=== PATIENT | male | born 1945 | race Caucasian/White ===

== ENCOUNTER 2016-04-03 17:59 | Emergency (ER) | payer MEDICARE, OTHER ==
[~2016-04-03 17:59] MED LIST: ALLEGRA 180MG180 MG PO; CALCIUM 600 W/V1 TAB PO; CIPRO XR500 MG; FELODIPINE10 MG PO; GLUCOTROL XL5 MG PO; LIDODERM 5% PATC1 EA TP; LOPRESSOR100 MG PO; MECLIZINE25 MG PO; MICARDIS HCT; MICARDIS HCT 251 TAB PO; NEXIUM 40MG40 MG PO; OMEGA-31000 MG PO; PLENDIL 5MG TAB5 MG; SIMVASTATIN20 MG PO; TOPROL XL200 MG; TYLENOL 325MG325 MG PO; VIAGRA100 MG PO; ZOCOR
[2016-04-03] MEDS ORDERED: GLUCOTROL10 M2 PO (18:06)
[2016-04-03] MEDS ORDERED: LOPRESSOR 550 MG/TAB PO (18:06)
[2016-04-03] MEDS ORDERED: NORCO 325 MG-51 TA1 PO (18:07)
[2016-04-03] MEDS ORDERED: FELODIPINE10 MG PO (18:07)
[2016-04-03] MEDS ORDERED: CARAFATE 1GM1 G PO (18:08)
[2016-04-03] MEDS ORDERED: LEVOXYL50 MCG PO (18:09)
[2016-04-03] MEDS ORDERED: ELIQUIS2.5 MG PO (18:09)
[2016-04-03] MEDS ORDERED: MULTAQ400 M1 PO (18:10)
[2016-04-03] MEDS ORDERED: NEXIUM 40MG40 MG PO (19:25)
[2016-09-14] MEDS ORDERED: CARAFATE PO (07:33)
[2016-09-14] MEDS ORDERED: CLARITIN LIQUI-10 MG PO (07:35)
== END 2016-04-03 19:49 | disposition home or self-care (01) ==
LOC: ED 17:59
DX: R07.89 Other chest pain (principal); K21.9 Gastro-esophageal reflux disease without esophagitis; Z79.01 Long term (current) use of anticoagulants; Z79.82 Long term (current) use of aspirin

== ENCOUNTER → 2016-07-15 | Outpatient (CLI) | payer MEDICARE, OTHER ==
[2016-04-03 19:49] VITALS: BP 136/81
[~2016-07-15] MED LIST changes: +CARAFATE 1GM1 G PO; +CARAFATE PO; +CLARITIN LIQUI-10 MG PO; +ELIQUIS2.5 MG PO; +GLUCOTROL10 M2 PO; +LEVOXYL50 MCG PO; +LOPRESSOR 550 MG/TAB PO; +MULTAQ400 M1 PO; +NORCO 325 MG-51 TA1 PO
== END ==
LOC: RAD 07:02 → LAB 07:02
DX: K76.0 Fatty (change of) liver, not elsewhere classified (principal); R53.82 Chronic fatigue, unspecified; R74.8 Abnormal levels of other serum enzymes

== ENCOUNTER → 2016-08-25 | Outpatient (CLI) | payer MEDICARE, OTHER ==
[2016-04-03 19:49] VITALS: BP 136/81
== END ==
LOC: LAB 08:10
DX: E11.9 Type 2 diabetes mellitus without complications (principal); E78.2 Mixed hyperlipidemia; M17.12 Unilateral primary osteoarthritis, left knee

== ENCOUNTER → 2016-09-14 | Outpatient (CLI) | payer MEDICARE, OTHER ==
[~2016-09-14] VITALS: Ht 172.7 cm; Wt 109.1 kg
[2016-09-14 07:30] VITALS: BP 150/85
== END ==
LOC: LAB 06:49
DX: M25.562 Pain in left knee (principal); M17.12 Unilateral primary osteoarthritis, left knee; I48.0 Paroxysmal atrial fibrillation; Z01.812 Encounter for preprocedural laboratory examination; Z01.811 Encounter for preprocedural respiratory examination

== ENCOUNTER → 2016-10-16 | Outpatient (CLI) | payer MEDICARE, OTHER ==
[2016-09-14 07:30] VITALS: BP 150/85
== END ==
LOC: LAB 06:51
DX: Z01.818 Encounter for other preprocedural examination (principal); M17.12 Unilateral primary osteoarthritis, left knee; I48.0 Paroxysmal atrial fibrillation; E78.2 Mixed hyperlipidemia; I10 Essential (primary) hypertension; E11.8 Type 2 diabetes mellitus with unspecified complications; K21.9 Gastro-esophageal reflux disease without esophagitis

== ENCOUNTER → 2016-10-21 | Outpatient (CLI) | payer MEDICARE, OTHER ==
[2016-09-14 07:30] VITALS: BP 150/85
== END ==
LOC: LAB 09:20
DX: R82.71 Bacteriuria (principal); Z01.818 Encounter for other preprocedural examination; M17.12 Unilateral primary osteoarthritis, left knee; I10 Essential (primary) hypertension; E11.9 Type 2 diabetes mellitus without complications; I48.0 Paroxysmal atrial fibrillation; E03.4 Atrophy of thyroid (acquired); K21.9 Gastro-esophageal reflux disease without esophagitis; E78.2 Mixed hyperlipidemia; F43.21 Adjustment disorder with depressed mood

== ENCOUNTER 2016-10-31 08:30 | Inpatient (IN) | payer MEDICARE, OTHER ==
[~2016-10-31] VITALS: Ht 172.7 cm; Wt 110.1 kg
[2016-10-31 11:44] VITALS: BP 142/63
[2016-10-31] MEDS ORDERED: ELIQUIS5 MG PO (11:47)
[2016-10-31] MEDS ORDERED: BETAPACE80 M1 PO (11:47)
[2016-10-31] MEDS ORDERED: GLIPIZIDE10 M2 PO ×2 (11:48→11:50)
[2016-10-31] MEDS ORDERED: OXYCODONE HYDROC5 M1 PO (11:51)
[2016-10-31 12:12] VITALS: BP 142/63
[2016-10-31 13:04] VITALS: BP 142/63
[2016-10-31 18:02] VITALS: BP 156/76
[2016-11-01 06:22] VITALS: BP 157/74
[2016-11-01 19:17] VITALS: BP 146/70
[2016-11-02 06:04] VITALS: BP 136/64
[2016-11-02 17:50] VITALS: BP 148/69
[2016-11-03 06:06] VITALS: BP 149/74
[2016-11-03 17:39] VITALS: BP 124/54
[2016-11-04 05:26] VITALS: BP 135/63
[2016-11-04 17:38] VITALS: BP 129/65
[2016-11-05 05:54] VITALS: BP 155/86
[2016-11-05 18:34] VITALS: BP 135/62
[2016-11-06 05:36] VITALS: BP 141/75
[2016-11-06 17:56] VITALS: BP 138/66
[2016-11-07 06:31] VITALS: BP 148/77
[2016-11-07 19:02] VITALS: BP 146/70
[2016-11-08 06:15] VITALS: BP 138/66
[2016-11-08 18:22] VITALS: BP 133/65
[2016-11-09 05:41] VITALS: BP 137/63
[2016-11-09 17:39] VITALS: BP 142/69
[2016-11-10 05:59] VITALS: BP 162/76
[2016-11-10] MEDS ORDERED: ACETAMINOPHEN325 M1 PO (13:28)
[2016-11-10] MEDS ORDERED: TRAMADOL 50 MG TAB PO (13:28)
[2016-11-10] MEDS ORDERED: DOCUSATE SOD100 MG PO (13:28)
[2016-11-10] MEDS ORDERED: GOOD NEIGH1200 MG/15 PO (13:28)
[2016-11-10 18:10] VITALS: BP 140/61
[2016-11-11 06:22] VITALS: BP 149/72
== END 2016-11-11 08:44 | disposition home health service (06) | DRG 561 ==
LOC: MED/SURG 08:30
PROVIDERS: ADMIT Family Medicine
DX: Z47.1 Aftercare following joint replacement surgery (principal); Z96.652 Presence of left artificial knee joint; I10 Essential (primary) hypertension; I48.0 Paroxysmal atrial fibrillation; E11.9 Type 2 diabetes mellitus without complications; E03.9 Hypothyroidism, unspecified; K21.9 Gastro-esophageal reflux disease without esophagitis; Z85.46 Personal history of malignant neoplasm of prostate

== ENCOUNTER → 2017-01-11 | Outpatient (CLI) | payer MEDICARE, OTHER ==
[~2017-01-11] MED LIST changes: +ACETAMINOPHEN325 M1 PO; +BETAPACE80 M1 PO; +DOCUSATE SOD100 MG PO; +ELIQUIS5 MG PO; +GLIPIZIDE10 M2 PO; +GOOD NEIGH1200 MG/15 PO; +OXYCODONE HYDROC5 M1 PO; +TRAMADOL 50 MG TAB PO
[2017-01-11 19:40] VITALS: BP 158/87
--- NOTE | 2017-01-11 20:19 | NUR ---
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
== END ==
LOC: AMSURD 19:31
DX: M25.562 Pain in left knee (principal)

== ENCOUNTER → 2017-01-11 | Outpatient (CLI) | payer MEDICARE, OTHER | LOC: RAD 15:42 | DX: M17.11 Unilateral primary osteoarthritis, right knee (principal); Z96.651 Presence of right artificial knee joint; Z88.5 Allergy status to narcotic agent; Z88.8 Allergy status to other drugs, medicaments and biological substances ==

== ENCOUNTER 2017-01-14 08:15 | Outpatient (RCR) | payer MEDICARE, OTHER | END 2017-01-14 08:45 | disposition home or self-care (01) | LOC: PT 08:15 | DX: Z47.1 Aftercare following joint replacement surgery (principal); Z96.652 Presence of left artificial knee joint | CPT/HCPCS: G8978-GP; G8979-GP ==

== ENCOUNTER → 2017-02-09 | Outpatient (CLI) | payer MEDICARE, OTHER ==
[2017-01-11 19:40] VITALS: BP 158/87
== END ==
LOC: LAB 11:24
DX: R05 Cough (principal); M79.1 Myalgia; R61 Generalized hyperhidrosis; Z88.5 Allergy status to narcotic agent; Z88.8 Allergy status to other drugs, medicaments and biological substances

== ENCOUNTER → 2017-04-30 | Outpatient (CLI) | payer MEDICARE, OTHER ==
[2017-04-19 08:22] VITALS: BP 157/84
[~2017-04-30] MED LIST changes: +GLIPIZIDE ER10 M1 PO; +LIDODERM1 EACH TP; +OMEGA-31000 M1 PO; -OMEGA-31000 MG PO; +RT ALBUTEROL CC18 GM IH
== END ==
LOC: LAB 12:06
DX: E11.9 Type 2 diabetes mellitus without complications (principal); Z96.659 Presence of unspecified artificial knee joint; Z88.5 Allergy status to narcotic agent; Z88.8 Allergy status to other drugs, medicaments and biological substances

== ENCOUNTER → 2017-05-03 | Outpatient (CLI) | payer MEDICARE, OTHER ==
[2017-04-19 08:22] VITALS: BP 157/84
[2017-05-03 17:11] LABS: CALCIUM 9.1 mg/dL (8.4-10.2); POTASSIUM 3.7 mmol/L (3.6-5.0)
== END ==
LOC: LAB 16:26
PROVIDERS: Family Medicine
DX: I10 Essential (primary) hypertension (principal); E78.6 Lipoprotein deficiency; Z88.5 Allergy status to narcotic agent; Z88.8 Allergy status to other drugs, medicaments and biological substances

== ENCOUNTER 2017-05-13 08:51 | Inpatient (IN) | payer MEDICARE, OTHER ==
[~2017-05-13] VITALS: Ht 172.7 cm; Wt 107.8 kg
[2017-05-13 09:45] VITALS: BP 99/52
[2017-05-13 09:46] VITALS: BP 99/52
[2017-05-13 11:08] LABS: HEMATOCRIT 37.8 % (42.0-52.0); HEMOGLOBIN 12.7 g/dL (13.5-18.0); MEAN CELL VOLUME 92 fl (78-100); MEAN CORPUSCULAR HEMOGLOBIN 31 pg (27-31); MEAN CORPUSCULAR HGB CONC 34 g/dL (33-37); MEAN PLATELET VOLUME 10.1 fl (7.4-10.4); PLATELET COUNT 258 K/mm3 (130-400); RED BLOOD COUNT 4.11 M/mm3 (4.20-5.60); RED CELL DISTRIBUTION WIDTH 14.1 % (11.5-14.5); WHITE BLOOD COUNT 15.2 K/mm3 (4.8-10.8)
[2017-05-13 11:26] LABS: ALBUMIN 3.9 g/dL (3.5-5.0); BUN/CREATININE RATIO 19.8 (6.0-26.0); CALCIUM 8.7 mg/dL (8.4-10.2); POTASSIUM 3.4 mmol/L (3.6-5.0); TOTAL BILIRUBIN 1.5 mg/dL (0.2-1.3); TOTAL PROTEIN 7.4 g/dL (6.3-8.2)
[2017-05-13 12:31] LABS: URINE APPEARANCE CLOUDY; URINE BILIRUBIN NEGATIVE (NEGATIVE); URINE BLOOD NEGATIVE (NEGATIVE); URINE COLOR DARK YELLOW; URINE GLUCOSE NEGATIVE (NEGATIVE); URINE KETONE NEGATIVE (NEGATIVE); URINE NITRATE NEGATIVE (NEGATIVE); URINE PROTEIN(semi-quant) 1+ mg/dL (NEGATIVE); URINE UROBILINOGEN NORMAL (NORMAL)
[2017-05-13 12:32] LABS: URINE LEUKOCYTE ESTERASE TRACE (NEGATIVE); URINE MUCUS PRESENT (NOT PRESENT)
[2017-05-13 12:33] LABS: LYMPHOCYTE 19 % (20-51); MONOCYTE 8 % (3-10); NEUTROPHILS 72 % (42-75)
[2017-05-13 18:26] VITALS: BP 123/58
[2017-05-14 06:20] VITALS: BP 147/73
[2017-05-14 18:06] VITALS: BP 125/66
[2017-05-14] MEDS ORDERED: JANUVIA50 MG PO (21:21)
[2017-05-14] MEDS ORDERED: MICARDIS80 MG PO (21:22)
[2017-05-15 06:11] VITALS: BP 159/78
[2017-05-15 07:11] LABS: HEMATOCRIT 34.8 % (42.0-52.0); HEMOGLOBIN 11.6 g/dL (13.5-18.0); MEAN CELL VOLUME 92 fl (78-100); MEAN CORPUSCULAR HEMOGLOBIN 31 pg (27-31); MEAN CORPUSCULAR HGB CONC 33 g/dL (33-37); MEAN PLATELET VOLUME 9.3 fl (7.4-10.4); PLATELET COUNT 236 K/mm3 (130-400); RED BLOOD COUNT 3.79 M/mm3 (4.20-5.60); RED CELL DISTRIBUTION WIDTH 13.8 % (11.5-14.5); WHITE BLOOD COUNT 8.1 K/mm3 (4.8-10.8)
[2017-05-15 08:36] LABS: BAND 6 % (0-10); LYMPHOCYTE 22 % (20-51); MONOCYTE 11 % (3-10); NEUTROPHILS 58 % (42-75)
[2017-05-15 18:13] VITALS: BP 138/64
[2017-05-16 06:00] VITALS: BP 146/61
[2017-05-16 18:20] VITALS: BP 154/94
[2017-05-17 06:13] VITALS: BP 145/71
[2017-05-17 18:18] VITALS: BP 123/62
[2017-05-18 06:06] VITALS: BP 142/75
[2017-05-18 18:10] VITALS: BP 118/60
[2017-05-19 05:59] VITALS: BP 170/71
[2017-05-19 10:20] LABS: BASO # 0.1 (0.02-0.10); EOS # 0.3 (0.04-0.40); HEMOGLOBIN 13.1 g/dL (13.5-18.0); LYMPH# 1.5 (1.50-4.00); MEAN CELL VOLUME 92 fl (78-100); MEAN CORPUSCULAR HEMOGLOBIN 30 pg (27-31); MEAN CORPUSCULAR HGB CONC 33 g/dL (33-37); MEAN PLATELET VOLUME 9.2 fl (7.4-10.4); PLATELET COUNT 327 K/mm3 (130-400); RED BLOOD COUNT 4.33 M/mm3 (4.20-5.60); WHITE BLOOD COUNT 9.9 K/mm3 (4.8-10.8)
[2017-05-19 10:29] LABS: BUN/CREATININE RATIO 24.8 (6.0-26.0); CALCIUM 9.3 mg/dL (8.4-10.2); POTASSIUM 3.2 mmol/L (3.6-5.0)
[2017-05-19 18:00] VITALS: BP 133/71
[2017-05-20 06:12] VITALS: BP 136/69
[2017-05-20 18:00] VITALS: BP 132/65
[2017-05-21 06:17] VITALS: BP 155/89
[2017-05-21 18:18] VITALS: BP 151/62
[2017-05-22 06:22] VITALS: BP 147/76
[2017-05-22 18:00] VITALS: BP 145/73
[2017-05-23 06:05] VITALS: BP 157/79
[2017-05-23 17:55] VITALS: BP 132/73
[2017-05-24 06:20] VITALS: BP 169/85
[2017-05-24 09:15] LABS: BUN/CREATININE RATIO 26.2 (6.0-26.0); CALCIUM 9.6 mg/dL (8.4-10.2); POTASSIUM 3.9 mmol/L (3.6-5.0); TOTAL BILIRUBIN 1.7 mg/dL (0.2-1.3); TOTAL PROTEIN 7.7 g/dL (6.3-8.2)
[2017-05-24 18:05] VITALS: BP 112/59
[2017-05-25 06:40] VITALS: BP 131/65
[2017-05-25 18:22] VITALS: BP 120/70
[2017-05-26 06:30] VITALS: BP 138/77
[2017-05-26] MEDS ORDERED: DOCUSATE SOD100 MG PO (17:23)
[2017-05-26] MEDS ORDERED: NEURONTIN300 M1 PO (17:23)
[2017-05-26] MEDS ORDERED: HCTZ 25MG25 MG PO (17:24)
[2017-05-26] MEDS ORDERED: NORCO 325 MG-7.1 TAB PO (17:25)
[2017-05-26 17:45] VITALS: BP 137/67
== END 2017-05-26 18:34 | disposition home or self-care (01) | DRG 561 ==
LOC: MED/SURG 08:51
PROVIDERS: Family Medicine; ADMIT Physician Assistant
DX: Z47.1 Aftercare following joint replacement surgery (principal); Z96.651 Presence of right artificial knee joint; I10 Essential (primary) hypertension; E11.9 Type 2 diabetes mellitus without complications; I48.0 Paroxysmal atrial fibrillation; Z85.46 Personal history of malignant neoplasm of prostate; M54.2 Cervicalgia

== ENCOUNTER → 2017-06-02 | Outpatient (CLI) | payer MEDICARE, OTHER ==
[2017-05-26 17:45] VITALS: BP 137/67
[~2017-06-02] MED LIST changes: +HCTZ 25MG25 MG PO; +JANUVIA50 MG PO; +MICARDIS80 MG PO; +NEURONTIN300 M1 PO; +NORCO 325 MG-7.1 TAB PO
[2017-06-02 11:57] LABS: BUN/CREATININE RATIO 22.8 (6.0-26.0); CALCIUM 9.4 mg/dL (8.4-10.2); POTASSIUM 3.7 mmol/L (3.6-5.0)
== END ==
LOC: LAB 10:44
PROVIDERS: Family Medicine
DX: I10 Essential (primary) hypertension (principal); Z88.5 Allergy status to narcotic agent; Z88.8 Allergy status to other drugs, medicaments and biological substances

== ENCOUNTER → 2017-06-07 | Outpatient (CLI) | payer MEDICARE, OTHER ==
[2017-05-26 17:45] VITALS: BP 137/67
== END ==
LOC: RAD 05-31 09:00
DX: M50.31 Other cervical disc degeneration, high cervical region (principal); M48.02 Spinal stenosis, cervical region; M25.78 Osteophyte, vertebrae; Z96.651 Presence of right artificial knee joint; Z88.5 Allergy status to narcotic agent; Z88.8 Allergy status to other drugs, medicaments and biological substances

== ENCOUNTER 2017-07-08 11:00 | Outpatient (RCR) | payer MEDICARE, OTHER | END 2017-07-08 12:00 | disposition home or self-care (01) | LOC: PT 11:00 | DX: Z47.1 Aftercare following joint replacement surgery (principal); Z96.651 Presence of right artificial knee joint | CPT/HCPCS: G8978-GP; G8979-GP ==

== ENCOUNTER → 2017-07-13 | Outpatient (CLI) | payer MEDICARE, OTHER ==
[2017-07-13 12:45] LABS: BASO # 0.1 (0.02-0.10); EOS # 0.2 (0.04-0.40); EOS % 2.9 % (0.0-4.0); HEMATOCRIT 47.3 % (42.0-52.0); HEMOGLOBIN 15.9 g/dL (13.5-18.0); LYMPH# 1.8 (1.50-4.00); MEAN CELL VOLUME 89 fl (78-100); MEAN CORPUSCULAR HEMOGLOBIN 30 pg (27-31); MEAN CORPUSCULAR HGB CONC 34 g/dL (33-37); MEAN PLATELET VOLUME 10.1 fl (7.4-10.4); MONO # 0.8 (0.20-0.80); NEU # 5.1 (1.40-6.50); PLATELET COUNT 185 K/mm3 (130-400); RED BLOOD COUNT 5.32 M/mm3 (4.20-5.60); RED CELL DISTRIBUTION WIDTH 13.8 % (11.5-14.5); WHITE BLOOD COUNT 7.9 K/mm3 (4.8-10.8)
[2017-07-13 12:50] LABS: PROTHROMBIN TIME 11.4 SECONDS (9.0-12.0)
[2017-07-13 12:52] LABS: ALBUMIN 4.3 g/dL (3.5-5.0); BUN/CREATININE RATIO 21.2 (6.0-26.0); CALCIUM 9.2 mg/dL (8.4-10.2); POTASSIUM 3.7 mmol/L (3.6-5.0); TOTAL BILIRUBIN 0.8 mg/dL (0.2-1.3); TOTAL PROTEIN 7.7 g/dL (6.3-8.2)
== END ==
LOC: LAB 12:21
PROVIDERS: Physician Assistant
DX: K75.81 Nonalcoholic steatohepatitis (NASH) (principal); R74.8 Abnormal levels of other serum enzymes; R14.0 Abdominal distension (gaseous)

== ENCOUNTER → 2017-07-21 | Outpatient (CLI) | payer MEDICARE, OTHER | LOC: RAD 08:25 | DX: K76.0 Fatty (change of) liver, not elsewhere classified (principal) ==

== ENCOUNTER → 2017-07-30 | Outpatient (CLI) | payer MEDICARE, OTHER | LOC: LAB 14:15 | DX: E11.9 Type 2 diabetes mellitus without complications (principal) ==

== ENCOUNTER 2017-09-08 08:30 | Outpatient (RCR) | payer MEDICARE, OTHER ==
[2017-10-22] MEDS ORDERED: KLONOPIN 0.5MG0.5 MG PO (11:52)
[2017-10-22] MEDS ORDERED: CIPRO500 M1 PO (11:53)
[2017-10-22] MEDS ORDERED: COLACE100 M1 PO (11:54)
[2017-10-22] MEDS ORDERED: FLOMAX0.4 MG PO (11:54)
== END 2017-10-25 | disposition home or self-care (01) ==
LOC: PT
DX: M54.12 Radiculopathy, cervical region (principal); M48.02 Spinal stenosis, cervical region

== ENCOUNTER → 2017-09-23 | Outpatient (CLI) | payer MEDICARE, OTHER | LOC: RAD 07:26 | DX: R31.1 Benign essential microscopic hematuria (principal) ==

== ENCOUNTER → 2017-10-14 | Outpatient (CLI) | payer MEDICARE, OTHER ==
[2017-10-14 07:14] LABS: CALCIUM 9.5 mg/dL (8.4-10.2); POTASSIUM 3.9 mmol/L (3.6-5.0)
== END ==
LOC: LAB 06:48
PROVIDERS: Family Medicine
DX: E11.9 Type 2 diabetes mellitus without complications (principal); M48.02 Spinal stenosis, cervical region; G45.0 Vertebro-basilar artery syndrome

== ENCOUNTER → 2017-10-22 | Outpatient (CLI) | payer MEDICARE, OTHER ==
[~2017-10-22] VITALS: Ht 170.2 cm; Wt 107.7 kg
[~2017-10-22] MED LIST changes: +CIPRO500 M1 PO; +COLACE100 M1 PO; +FLOMAX0.4 MG PO; +KLONOPIN 0.5MG0.5 MG PO
[2017-10-22 11:36] LABS: HEMATOCRIT 49.5 % (42.0-52.0); HEMOGLOBIN 16.8 g/dL (13.5-18.0); MEAN CELL VOLUME 90 fl (78-100); MEAN CORPUSCULAR HEMOGLOBIN 30 pg (27-31); MEAN CORPUSCULAR HGB CONC 34 g/dL (33-37); MEAN PLATELET VOLUME 10.3 fl (7.4-10.4); PLATELET COUNT 196 K/mm3 (130-400); RED BLOOD COUNT 5.53 M/mm3 (4.20-5.60); RED CELL DISTRIBUTION WIDTH 13.8 % (11.5-14.5); WHITE BLOOD COUNT 14.4 K/mm3 (4.8-10.8)
[2017-10-22 11:54] LABS: ALBUMIN 4.5 g/dL (3.5-5.0); CALCIUM 9.8 mg/dL (8.4-10.2); DIRECT BILIRUBIN 0.5 mg/dL (0.0-0.4); POTASSIUM 4.1 mmol/L (3.6-5.0); TOTAL BILIRUBIN 1.8 mg/dL (0.2-1.3); TOTAL PROTEIN 7.6 g/dL (6.3-8.2)
[2017-10-22 11:57] VITALS: BP 122/64
[2017-10-22 11:57] LABS: PARTIAL THROMBOPLASTIN TIME 27.9 SECONDS (21.0-32.0); PROTHROMBIN TIME 11.3 SECONDS (9.0-12.0)
[2017-10-22 12:38] LABS: LYMPHOCYTE 10 % (20-51); MONOCYTE 9 % (3-10); NEUTROPHILS 79 % (42-75)
[2017-10-22 12:48] LABS: URINE APPEARANCE CLEAR; URINE BILIRUBIN NEGATIVE (NEGATIVE); URINE COLOR YELLOW; URINE KETONE NEGATIVE (NEGATIVE); URINE PROTEIN(semi-quant) TRACE mg/dL (NEGATIVE); URINE UROBILINOGEN NORMAL (NORMAL)
[2017-10-22 12:49] LABS: URINE BLOOD NEGATIVE (NEGATIVE); URINE LEUKOCYTE ESTERASE NEGATIVE (NEGATIVE); URINE NITRATE NEGATIVE (NEGATIVE)
== END ==
LOC: AMSURD 10:55
PROVIDERS: Family Medicine
DX: Z01.818 Encounter for other preprocedural examination (principal); M50.03 Cervical disc disorder with myelopathy, cervicothoracic region; I48.0 Paroxysmal atrial fibrillation; E11.9 Type 2 diabetes mellitus without complications; E78.5 Hyperlipidemia, unspecified; I10 Essential (primary) hypertension; G45.0 Vertebro-basilar artery syndrome

== ENCOUNTER → 2017-11-01 | Outpatient (CLI) | payer MEDICARE, OTHER ==
[2017-10-22 11:57] VITALS: BP 122/64
[2017-11-01 09:42] LABS: BASO # 0.1 (0.02-0.10); EOS # 0.3 (0.04-0.40); EOS % 3.4 % (0.0-4.0); HEMATOCRIT 47.6 % (42.0-52.0); HEMOGLOBIN 16.5 g/dL (13.5-18.0); LYMPH# 1.7 (1.50-4.00); MEAN CELL VOLUME 89 fl (78-100); MEAN CORPUSCULAR HEMOGLOBIN 31 pg (27-31); MEAN CORPUSCULAR HGB CONC 35 g/dL (33-37); MEAN PLATELET VOLUME 10.4 fl (7.4-10.4); NEU # 5.5 (1.40-6.50); PLATELET COUNT 179 K/mm3 (130-400); RED BLOOD COUNT 5.36 M/mm3 (4.20-5.60); RED CELL DISTRIBUTION WIDTH 13.5 % (11.5-14.5); WHITE BLOOD COUNT 8.5 K/mm3 (4.8-10.8)
== END ==
LOC: LAB 09:11
PROVIDERS: Family Medicine
DX: D72.829 Elevated white blood cell count, unspecified (principal)

== ENCOUNTER 2017-11-17 01:41 | Emergency (ER) | payer MEDICARE, OTHER ==
[2017-11-17 07:30] VITALS: BP 156/91
== END 2017-11-17 07:50 | disposition home or self-care (01) ==
LOC: ED 01:41
DX: F41.9 Anxiety disorder, unspecified (principal); R06.02 Shortness of breath; Z98.1 Arthrodesis status; E11.9 Type 2 diabetes mellitus without complications; I48.91 Unspecified atrial fibrillation; Z79.01 Long term (current) use of anticoagulants; I25.10 Atherosclerotic heart disease of native coronary artery without angina pectoris; I11.0 Hypertensive heart disease with heart failure; I50.9 Heart failure, unspecified; E78.5 Hyperlipidemia, unspecified; K21.9 Gastro-esophageal reflux disease without esophagitis; Z79.899 Other long term (current) drug therapy; Z79.84 Long term (current) use of oral hypoglycemic drugs

== ENCOUNTER 2017-12-01 06:38 | Emergency (ER) | payer MEDICARE, OTHER ==
[~2017-12-01] VITALS: Ht 172.7 cm; Wt 104.5 kg
[2017-12-01] MEDS ORDERED: OXYCODONE PO (06:48)
[2017-12-01 08:38] VITALS: BP 150/77
== END 2017-12-01 08:42 | disposition home or self-care (01) ==
LOC: ED 06:38
DX: S16.1XXA Strain of muscle, fascia and tendon at neck level, initial encounter (principal); W10.1XXA Fall (on)(from) sidewalk curb, initial encounter; I10 Essential (primary) hypertension; Z98.1 Arthrodesis status; Z79.899 Other long term (current) drug therapy; Z79.01 Long term (current) use of anticoagulants

== ENCOUNTER → 2018-01-11 | Outpatient (CLI) | payer MEDICARE, OTHER ==
[~2018-01-11] MED LIST changes: +OXYCODONE PO
[2018-01-11 11:49] LABS: PROTHROMBIN TIME 11.8 SECONDS (9.0-12.0)
[2018-01-11 11:50] LABS: ALBUMIN 4.7 g/dL (3.5-5.0); CALCIUM 9.5 mg/dL (8.4-10.2); TOTAL BILIRUBIN 1.2 mg/dL (0.2-1.3); TOTAL PROTEIN 7.7 g/dL (6.3-8.2)
[2018-01-11 13:17] LABS: HEMATOCRIT 47.9 % (42.0-52.0); HEMOGLOBIN 16.1 g/dL (13.5-18.0); MEAN CELL VOLUME 90 fl (78-100); MEAN CORPUSCULAR HEMOGLOBIN 30 pg (27-31); MEAN CORPUSCULAR HGB CONC 34 g/dL (33-37); MEAN PLATELET VOLUME 11.3 fl (7.4-10.4); PLATELET COUNT 179 K/mm3 (130-400); RED BLOOD COUNT 5.35 M/mm3 (4.20-5.60); RED CELL DISTRIBUTION WIDTH 13.9 % (11.5-14.5)
[2018-01-11 14:33] LABS: LYMPHOCYTE 14 % (20-51); MONOCYTE 11 % (3-10); NEUTROPHILS 74 % (42-75)
== END ==
LOC: LAB 11:05
PROVIDERS: Physician Assistant
DX: K75.81 Nonalcoholic steatohepatitis (NASH) (principal); R74.8 Abnormal levels of other serum enzymes

== ENCOUNTER → 2018-01-12 | Outpatient (CLI) | payer MEDICARE, OTHER | LOC: RAD 07:14 | DX: K76.0 Fatty (change of) liver, not elsewhere classified (principal) ==

== ENCOUNTER → 2018-04-23 | Outpatient (CLI) | payer MEDICARE, OTHER ==
[2018-04-23 07:57] LABS: ALBUMIN 4.3 g/dL (3.5-5.0); CALCIUM 9.2 mg/dL (8.4-10.2); POTASSIUM 3.7 mmol/L (3.6-5.0); TOTAL BILIRUBIN 1.3 mg/dL (0.2-1.3); TOTAL PROTEIN 7.6 g/dL (6.3-8.2)
== END ==
LOC: LAB 07:23
PROVIDERS: Family Medicine
DX: E11.9 Type 2 diabetes mellitus without complications (principal); I10 Essential (primary) hypertension; E78.5 Hyperlipidemia, unspecified

== ENCOUNTER → 2018-07-11 | Outpatient (CLI) | payer MEDICARE, OTHER ==
[2018-07-11 12:31] LABS: BASO # 0.1 (0.02-0.10); EOS # 0.1 (0.04-0.40); EOS % 1.7 % (0.0-4.0); HEMATOCRIT 48.9 % (42.0-52.0); LYMPH# 1.5 (1.50-4.00); MEAN CELL VOLUME 91 fl (78-100); MEAN CORPUSCULAR HEMOGLOBIN 30 pg (27-31); MEAN CORPUSCULAR HGB CONC 33 g/dL (33-37); MEAN PLATELET VOLUME 10.1 fl (7.4-10.4); MONO # 0.7 (0.20-0.80); NEU # 4.7 (1.40-6.50); PLATELET COUNT 163 K/mm3 (130-400); RED CELL DISTRIBUTION WIDTH 14.1 % (11.5-14.5); WHITE BLOOD COUNT 7.2 K/mm3 (4.8-10.8)
[2018-07-11 12:48] LABS: CALCIUM 9.6 mg/dL (8.3-10.5); TOTAL BILIRUBIN 0.9 mg/dL (0.2-1.2)
[2018-07-11 13:02] LABS: PROTHROMBIN TIME 11.5 SECONDS (9.0-12.0)
== END ==
LOC: LAB 12:15
PROVIDERS: Physician Assistant
DX: K75.81 Nonalcoholic steatohepatitis (NASH) (principal); R10.9 Unspecified abdominal pain; R74.8 Abnormal levels of other serum enzymes

== ENCOUNTER → 2018-07-14 | Outpatient (CLI) | payer MEDICARE, OTHER | LOC: RAD 07:00 | DX: K75.81 Nonalcoholic steatohepatitis (NASH) (principal); R94.5 Abnormal results of liver function studies; Z90.49 Acquired absence of other specified parts of digestive tract ==

== ENCOUNTER → 2018-07-18 | Outpatient (CLI) | payer MEDICARE, OTHER | LOC: LAB 10:07 | DX: E11.9 Type 2 diabetes mellitus without complications (principal); M79.604 Pain in right leg; R06.83 Snoring ==

== ENCOUNTER 2018-08-25 18:25 | Emergency (ER) | payer MEDICARE, OTHER ==
[~2018-08-25] VITALS: Ht 172.7 cm; Wt 109.3 kg
[2018-08-25] MEDS ORDERED: VIAGRA 25MG TAB25 MG PO (18:55)
[2018-08-25] MEDS ORDERED: ALLEGRA ALLERG180 MG PO (18:56)
[2018-08-25] MEDS ORDERED: MICARDIS HCT 251 TAB PO (18:56)
[2018-08-25] MEDS ORDERED: TIKOSYN0.5 MG PO (18:57)
[2018-08-25] MEDS ORDERED: VITAMIN E100 UNI2 PO (18:58)
[2018-08-25] MEDS ORDERED: ELIQUIS5 MG PO (18:58)
[2018-08-25] MEDS ORDERED: EFFER-K10 MEQ PO (18:59)
[2018-08-25] MEDS ORDERED: LIDODERM1 EACH TP (19:00)
[2018-08-25 19:08] LABS: EOS # 0.2 (0.04-0.40); EOS % 2.2 % (0.0-4.0); HEMATOCRIT 46.7 % (42.0-52.0); HEMOGLOBIN 15.9 g/dL (13.5-18.0); MEAN CELL VOLUME 90 fl (78-100); MEAN CORPUSCULAR HEMOGLOBIN 31 pg (27-31); MEAN CORPUSCULAR HGB CONC 34 g/dL (33-37); MEAN PLATELET VOLUME 10.2 fl (7.4-10.4); NEU # 5.1 (1.40-6.50); PLATELET COUNT 159 K/mm3 (130-400); RED CELL DISTRIBUTION WIDTH 13.9 % (11.5-14.5); WHITE BLOOD COUNT 8.3 K/mm3 (4.8-10.8)
[2018-08-25 19:15] LABS: POTASSIUM 3.8 mmol/L (3.5-5.1); SODIUM 140 mmol/L (136-145)
[2018-08-25 19:16] LABS: CALCIUM 9.4 mg/dL (8.3-10.5)
[2018-08-25 19:17] LABS: GLUCOSE 191 mg/dL (75-110)
[2018-08-25 19:18] LABS: TOTAL PROTEIN 7.1 g/dL (6.2-8.1)
[2018-08-25 19:19] LABS: CARBON DIOXIDE 24 mmol/L (23-31); TOTAL BILIRUBIN 0.8 mg/dL (0.2-1.2)
[2018-08-25 19:23] LABS: AST-SGOT 39 U/L (5-34)
[2018-08-25 19:24] LABS: ALT/SGPT 50 U/L (0-55)
[2018-08-25 19:31] LABS: TROPONIN-I < 0.03 ng/mL (<0.030)
[2018-08-25 22:30] VITALS: BP 150/86
== END 2018-08-25 22:30 | disposition home or self-care (01) ==
LOC: ED 18:25
PROVIDERS: Nurse Practitioner Family
DX: R07.89 Other chest pain (principal); M54.12 Radiculopathy, cervical region; G89.29 Other chronic pain; M54.2 Cervicalgia; I25.10 Atherosclerotic heart disease of native coronary artery without angina pectoris; I48.91 Unspecified atrial fibrillation; E11.9 Type 2 diabetes mellitus without complications; K21.9 Gastro-esophageal reflux disease without esophagitis; Z90.49 Acquired absence of other specified parts of digestive tract; Z79.84 Long term (current) use of oral hypoglycemic drugs; Z90.89 Acquired absence of other organs; Z98.1 Arthrodesis status; Z96.653 Presence of artificial knee joint, bilateral; Z79.01 Long term (current) use of anticoagulants; W19.XXXA Unspecified fall, initial encounter
CPT/HCPCS: J2405; J7030

== ENCOUNTER → 2018-10-28 | Outpatient (CLI) | payer MEDICARE, OTHER ==
[~2018-10-28] VITALS: Ht 172.7 cm; Wt 107.3 kg
[~2018-10-28] MED LIST changes: +ALLEGRA ALLERG180 MG PO; +EFFER-K10 MEQ PO; +TIKOSYN0.5 MG PO; +VIAGRA 25MG TAB25 MG PO; +VITAMIN E100 UNI2 PO
[2018-10-28 12:59] LABS: POTASSIUM 4.2 mmol/L (3.5-5.1); SODIUM 139 mmol/L (136-145)
[2018-10-28 13:00] LABS: CALCIUM 9.5 mg/dL (8.3-10.5)
[2018-10-28 13:01] LABS: GLUCOSE 238 mg/dL (75-110)
[2018-10-28 13:02] LABS: CARBON DIOXIDE 24 mmol/L (23-31)
[2018-10-28 13:06] VITALS: BP 114/68
[2018-10-28 13:13] LABS: CKMB ISOENZYME 2.7 ng/mL (0.0-3.5)
[2018-10-28 13:15] LABS: TROPONIN-I < 0.03 ng/mL (<0.030)
== END ==
LOC: AMSURD 12:35
PROVIDERS: Family Medicine
DX: E11.9 Type 2 diabetes mellitus without complications (principal); R11.0 Nausea; R10.13 Epigastric pain; M54.9 Dorsalgia, unspecified; M54.2 Cervicalgia; R06.83 Snoring; R07.9 Chest pain, unspecified; M79.604 Pain in right leg

== ENCOUNTER → 2018-11-07 | Outpatient (CLI) | payer MEDICARE, OTHER ==
[2018-10-28 13:06] VITALS: BP 114/68
[2018-11-07 07:23] LABS: POTASSIUM 3.9 mmol/L (3.5-5.1)
[2018-11-07 07:25] LABS: CALCIUM 9.2 mg/dL (8.3-10.5)
== END ==
LOC: LAB 06:56
PROVIDERS: Family Medicine
DX: M79.604 Pain in right leg (principal); E11.9 Type 2 diabetes mellitus without complications; I10 Essential (primary) hypertension; R06.83 Snoring

== ENCOUNTER → 2019-01-10 | Outpatient (CLI) | payer MEDICARE, OTHER ==
[2018-10-28 13:06] VITALS: BP 114/68
[2019-01-10 07:59] LABS: CALCIUM 9.7 mg/dL (8.3-10.5)
[2019-01-10 08:00] LABS: TOTAL PROTEIN 7.5 g/dL (6.2-8.1)
[2019-01-10 08:02] LABS: TOTAL BILIRUBIN 1.3 mg/dL (0.2-1.2)
[2019-01-10 08:19] LABS: PROTHROMBIN TIME 11.5 SECONDS (9.0-12.0)
[2019-01-10 09:52] LABS: HEMATOCRIT 49.3 % (42.0-52.0); HEMOGLOBIN 16.7 g/dL (13.5-18.0); MEAN CELL VOLUME 90 fl (78-100); MEAN CORPUSCULAR HEMOGLOBIN 31 pg (27-31); MEAN CORPUSCULAR HGB CONC 34 g/dL (33-37); MEAN PLATELET VOLUME 10.2 fl (7.4-10.4); PLATELET COUNT 170 K/mm3 (130-400); RED BLOOD COUNT 5.46 M/mm3 (4.20-5.60); RED CELL DISTRIBUTION WIDTH 14.3 % (11.5-14.5); WHITE BLOOD COUNT 7.3 K/mm3 (4.8-10.8)
[2019-01-10 09:53] LABS: LYMPHOCYTE 33 % (20-51); MONOCYTE 6 % (3-10); NEUTROPHILS 56 % (42-75)
[2019-01-11 06:27] LABS: ALBUMIN 4.3 g/dL (3.4-4.8); POTASSIUM 3.5 mmol/L (3.5-5.1)
== END ==
LOC: LAB 07:02
PROVIDERS: Physician Assistant
DX: K75.81 Nonalcoholic steatohepatitis (NASH) (principal)

== ENCOUNTER → 2019-01-12 | Outpatient (CLI) | payer MEDICARE, OTHER ==
[2018-10-28 13:06] VITALS: BP 114/68
== END ==
LOC: RAD 07:16
DX: K75.81 Nonalcoholic steatohepatitis (NASH) (principal); Z90.49 Acquired absence of other specified parts of digestive tract

== ENCOUNTER 2019-02-10 00:40 | Emergency (ER) | payer MEDICARE, OTHER ==
[2019-02-10 01:48] LABS: EOS # 0.3 (0.04-0.40); EOS % 4.2 % (0.0-4.0); HEMATOCRIT 49.3 % (42.0-52.0); HEMOGLOBIN 16.4 g/dL (13.5-18.0); LYMPH# 1.9 (1.50-4.00); MEAN CELL VOLUME 92 fl (78-100); MEAN CORPUSCULAR HEMOGLOBIN 30 pg (27-31); MEAN CORPUSCULAR HGB CONC 33 g/dL (33-37); MEAN PLATELET VOLUME 10.1 fl (7.4-10.4); MONO # 0.8 (0.20-0.80); NEU # 4.3 (1.40-6.50); PLATELET COUNT 145 K/mm3 (130-400); RED BLOOD COUNT 5.39 M/mm3 (4.20-5.60); RED CELL DISTRIBUTION WIDTH 14.3 % (11.5-14.5); WHITE BLOOD COUNT 7.4 K/mm3 (4.8-10.8)
[2019-02-10 01:58] LABS: POTASSIUM 3.6 mmol/L (3.5-5.1); SODIUM 141 mmol/L (136-145)
[2019-02-10 02:00] LABS: GLUCOSE 203 mg/dL (75-110)
[2019-02-10 02:01] LABS: CARBON DIOXIDE 24 mmol/L (23-31)
[2019-02-10 02:03] LABS: D-DIMER 0.37 mg/L FEU (0.15-0.50)
[2019-02-10 02:05] LABS: AST-SGOT 29 U/L (5-34)
[2019-02-10 02:06] LABS: ALT/SGPT 36 U/L (0-55)
[2019-02-10 02:23] LABS: TROPONIN-I < 0.03 ng/mL (<0.030)
[2019-02-10 06:06] VITALS: BP 138/73
== END 2019-02-10 06:06 | disposition home or self-care (01) ==
LOC: ED 00:40
PROVIDERS: Nurse Practitioner Family
DX: R06.02 Shortness of breath (principal); I11.0 Hypertensive heart disease with heart failure; I50.9 Heart failure, unspecified; I48.91 Unspecified atrial fibrillation; E11.9 Type 2 diabetes mellitus without complications; K21.9 Gastro-esophageal reflux disease without esophagitis; G47.33 Obstructive sleep apnea (adult) (pediatric); M54.2 Cervicalgia; M54.9 Dorsalgia, unspecified; G89.29 Other chronic pain; Z79.84 Long term (current) use of oral hypoglycemic drugs; Z85.46 Personal history of malignant neoplasm of prostate; Z96.653 Presence of artificial knee joint, bilateral
CPT/HCPCS: J7030

== ENCOUNTER → 2019-02-20 | Outpatient (CLI) | payer MEDICARE, OTHER ==
[2019-02-10 06:06] VITALS: BP 138/73
== END ==
LOC: RAD 09:47
DX: M19.012 Primary osteoarthritis, left shoulder (principal); G47.33 Obstructive sleep apnea (adult) (pediatric); R06.02 Shortness of breath

== ENCOUNTER → 2019-03-01 | Outpatient (CLI) | payer MEDICARE, OTHER ==
[2019-02-10 06:06] VITALS: BP 138/73
== END ==
LOC: LAB 08:50
DX: R97.20 Elevated prostate specific antigen [PSA] (principal)

== ENCOUNTER 2019-04-07 08:00 | Outpatient (RCR) | payer MEDICARE, OTHER | END 2019-04-07 08:30 | disposition still patient (30) | LOC: PT 08:00 | DX: M19.012 Primary osteoarthritis, left shoulder (principal) ==

== ENCOUNTER → 2019-07-11 | Outpatient (CLI) | payer MEDICARE, OTHER ==
[2019-07-11 07:30] LABS: POTASSIUM 3.7 mmol/L (3.5-5.1)
[2019-07-11 07:31] LABS: ALBUMIN 4.1 g/dL (3.4-4.8)
[2019-07-11 07:32] LABS: CALCIUM 8.8 mg/dL (8.3-10.5)
[2019-07-11 07:35] LABS: TOTAL BILIRUBIN 0.8 mg/dL (0.2-1.2)
== END ==
LOC: LAB 06:59
PROVIDERS: Family Medicine
DX: E11.9 Type 2 diabetes mellitus without complications (principal)

== ENCOUNTER → 2019-07-17 | Outpatient (CLI) | payer MEDICARE, OTHER | LOC: RAD 07:52 → LAB 07:52 → RAD 08:00 | DX: K76.0 Fatty (change of) liver, not elsewhere classified (principal); Z90.49 Acquired absence of other specified parts of digestive tract ==

== ENCOUNTER → 2019-08-01 | Outpatient (CLI) | payer MEDICARE, OTHER | LOC: RAD 07:15 | DX: N20.0 Calculus of kidney (principal) | CPT/HCPCS: Q9967 ==

== ENCOUNTER → 2019-09-04 | Outpatient (CLI) | payer MEDICARE, OTHER ==
[2019-09-04 08:13] LABS: ALBUMIN 4.1 g/dL (3.4-4.8)
[2019-09-04 08:16] LABS: TOTAL PROTEIN 7.5 g/dL (6.2-8.1)
[2019-09-04 08:18] LABS: TOTAL BILIRUBIN 0.9 mg/dL (0.2-1.2)
[2019-09-04 08:21] LABS: DIRECT BILIRUBIN 0.3 mg/dL (0.0-0.5)
== END ==
LOC: LAB 07:53
PROVIDERS: Family Medicine
DX: E11.9 Type 2 diabetes mellitus without complications (principal); K76.0 Fatty (change of) liver, not elsewhere classified; E78.5 Hyperlipidemia, unspecified

== ENCOUNTER → 2019-11-06 | Outpatient (CLI) | payer MEDICARE, OTHER | LOC: LAB 14:19 | DX: E11.22 Type 2 diabetes mellitus with diabetic chronic kidney disease (principal); I12.9 Hypertensive chronic kidney disease with stage 1 through stage 4 chronic kidney disease, or unspecified chronic kidney disease; N18.3 Chronic kidney disease, stage 3 (moderate); K64.4 Residual hemorrhoidal skin tags; E78.2 Mixed hyperlipidemia ==

== ENCOUNTER → 2019-11-07 | Outpatient (CLI) | payer MEDICARE, OTHER ==
[2019-11-07 07:33] LABS: ALBUMIN 4.3 g/dL (3.4-4.8)
[2019-11-07 07:36] LABS: TOTAL PROTEIN 7.2 g/dL (6.2-8.1)
[2019-11-07 07:38] LABS: TOTAL BILIRUBIN 1.2 mg/dL (0.2-1.2)
[2019-11-07 07:41] LABS: DIRECT BILIRUBIN 0.4 mg/dL (0.0-0.5)
== END ==
LOC: LAB 07:07
PROVIDERS: Family Medicine
DX: I12.9 Hypertensive chronic kidney disease with stage 1 through stage 4 chronic kidney disease, or unspecified chronic kidney disease (principal); K64.4 Residual hemorrhoidal skin tags; E78.5 Hyperlipidemia, unspecified; E11.22 Type 2 diabetes mellitus with diabetic chronic kidney disease; N18.3 Chronic kidney disease, stage 3 (moderate); K76.0 Fatty (change of) liver, not elsewhere classified

== ENCOUNTER → 2019-12-14 | Day surgery (SDC) | payer MEDICARE, OTHER | LOC: MSO 07:24 | DX: D12.5 Benign neoplasm of sigmoid colon (principal); K57.30 Diverticulosis of large intestine without perforation or abscess without bleeding; K21.00 Gastro-esophageal reflux disease with esophagitis, without bleeding; Z86.010 Personal history of colon polyps; Z79.84 Long term (current) use of oral hypoglycemic drugs; Z79.899 Other long term (current) drug therapy; K76.0 Fatty (change of) liver, not elsewhere classified; I10 Essential (primary) hypertension; F32.9 Major depressive disorder, single episode, unspecified; I48.91 Unspecified atrial fibrillation; M19.90 Unspecified osteoarthritis, unspecified site; Z79.01 Long term (current) use of anticoagulants | CPT/HCPCS: 00813; J2704; J7030 ==

== ENCOUNTER → 2020-01-17 | Outpatient (CLI) | payer MEDICARE, OTHER ==
[2020-01-17 09:41] LABS: EOS # 0.2 (0.04-0.40); EOS % 1.6 % (0.0-4.0); HEMATOCRIT 51.5 % (42.0-52.0); HEMOGLOBIN 17.2 g/dL (13.5-18.0); MEAN CELL VOLUME 90 fl (78-100); MEAN CORPUSCULAR HEMOGLOBIN 30 pg (27-31); MEAN CORPUSCULAR HGB CONC 33 g/dL (33-37); MEAN PLATELET VOLUME 10.1 fl (7.4-10.4); PLATELET COUNT 174 K/mm3 (130-400); RED CELL DISTRIBUTION WIDTH 14.4 % (11.5-14.5); WHITE BLOOD COUNT 9.2 K/mm3 (4.8-10.8)
[2020-01-17 09:45] LABS: ALBUMIN 4.2 g/dL (3.4-4.8)
[2020-01-17 09:46] LABS: POTASSIUM 4.1 mmol/L (3.5-5.1)
[2020-01-17 09:47] LABS: CALCIUM 9.6 mg/dL (8.3-10.5)
[2020-01-17 09:48] LABS: TOTAL PROTEIN 7.5 g/dL (6.2-8.1)
[2020-01-17 09:50] LABS: TOTAL BILIRUBIN 1.4 mg/dL (0.2-1.2)
[2020-01-17 10:59] LABS: PROTHROMBIN TIME 12.1 SECONDS (9.0-12.0)
== END ==
LOC: LAB 09:06
PROVIDERS: Physician Assistant
DX: K75.81 Nonalcoholic steatohepatitis (NASH) (principal)

== ENCOUNTER → 2020-01-18 | Outpatient (CLI) | payer MEDICARE, OTHER | LOC: RAD 07:05 | DX: K76.0 Fatty (change of) liver, not elsewhere classified (principal); Z90.49 Acquired absence of other specified parts of digestive tract ==

== ENCOUNTER → 2020-02-12 | Outpatient (CLI) | payer MEDICARE, OTHER | LOC: LAB 08:22 | DX: J02.9 Acute pharyngitis, unspecified (principal); Z20.828 Contact with and (suspected) exposure to other viral communicable diseases ==

== ENCOUNTER → 2020-03-01 | Outpatient (CLI) | payer MEDICARE, OTHER | LOC: RAD 15:16 | DX: M43.8X4 Other specified deforming dorsopathies, thoracic region (principal) ==

== ENCOUNTER → 2020-03-04 | Outpatient (CLI) | payer MEDICARE, OTHER | LOC: LAB 14:20 | DX: C61 Malignant neoplasm of prostate (principal) ==

== ENCOUNTER 2020-03-12 09:53 | Outpatient (RCR) | payer MEDICARE, OTHER | END 2020-04-11 16:30 | disposition home or self-care (01) | LOC: PT 09:53 | DX: M54.6 Pain in thoracic spine (principal) ==

== ENCOUNTER → 2020-04-12 | Outpatient (CLI) | payer MEDICARE, OTHER | LOC: LAB 14:17 | DX: E11.9 Type 2 diabetes mellitus without complications (principal) ==

== ENCOUNTER → 2020-05-13 | Outpatient (CLI) | payer MEDICARE, OTHER | LOC: RAD 13:29 | DX: M25.512 Pain in left shoulder (principal); Z98.1 Arthrodesis status; Z95.818 Presence of other cardiac implants and grafts ==

== ENCOUNTER → 2020-07-25 | Outpatient (CLI) | payer MEDICARE, OTHER ==
[2020-07-25 11:23] LABS: ALBUMIN 4.2 g/dL (3.4-4.8); POTASSIUM 4.1 mmol/L (3.5-5.1)
[2020-07-25 11:24] LABS: CALCIUM 9.6 mg/dL (8.3-10.5)
[2020-07-25 11:25] LABS: TOTAL PROTEIN 7.3 g/dL (6.2-8.1)
[2020-07-25 11:27] LABS: TOTAL BILIRUBIN 1.4 mg/dL (0.2-1.2)
== END ==
LOC: LAB 11:01
PROVIDERS: Family Medicine
DX: E11.9 Type 2 diabetes mellitus without complications (principal); M51.36 Other intervertebral disc degeneration, lumbar region

== ENCOUNTER → 2020-08-28 | Outpatient (CLI) | payer MEDICARE, OTHER | LOC: LAB 14:44 | DX: C61 Malignant neoplasm of prostate (principal) ==

== ENCOUNTER → 2020-09-23 | Outpatient (CLI) | payer MEDICARE, OTHER ==
[2020-09-23 12:54] LABS: BASO # 0.05 (0.02-0.10); EOS # 0.17 (0.04-0.40); HEMATOCRIT 51.5 % (42.0-52.0); HEMOGLOBIN 17.3 g/dL (13.5-18.0); LYMPH# 1.65 (1.50-4.00); MEAN CELL VOLUME 92 fl (78-100); MEAN CORPUSCULAR HEMOGLOBIN 31 pg (27-31); MEAN CORPUSCULAR HGB CONC 34 g/dL (33-37); MEAN PLATELET VOLUME 10.1 fl (7.4-10.4); MONO # 0.96 (0.20-0.80); NEU # 5.72 (1.40-6.50); PLATELET COUNT 167 K/mm3 (130-400); RED BLOOD COUNT 5.61 M/mm3 (4.20-5.60); RED CELL DISTRIBUTION WIDTH 13.4 % (11.5-14.5); WHITE BLOOD COUNT 8.6 K/mm3 (4.8-10.8)
[2020-09-23 12:58] LABS: ALBUMIN 4.1 g/dL (3.4-4.8); POTASSIUM 3.9 mmol/L (3.5-5.1)
[2020-09-23 13:00] LABS: CALCIUM 9.7 mg/dL (8.3-10.5)
[2020-09-23 13:01] LABS: TOTAL PROTEIN 7.2 g/dL (6.2-8.1)
[2020-09-23 13:03] LABS: TOTAL BILIRUBIN 1.3 mg/dL (0.2-1.2)
[2020-09-23 13:20] LABS: PROTHROMBIN TIME 12.1 SECONDS (9.0-12.0)
== END ==
LOC: LAB 11:55
PROVIDERS: Physician Assistant
DX: K75.81 Nonalcoholic steatohepatitis (NASH) (principal); R74.8 Abnormal levels of other serum enzymes; K74.60 Unspecified cirrhosis of liver

== ENCOUNTER → 2020-09-26 | Outpatient (CLI) | payer MEDICARE, OTHER | LOC: RAD 07:47 | DX: K75.81 Nonalcoholic steatohepatitis (NASH) (principal); K74.60 Unspecified cirrhosis of liver ==

== ENCOUNTER → 2020-10-10 | Day surgery (SDC) | payer MEDICARE, OTHER | LOC: MSO 07:14 | DX: K74.60 Unspecified cirrhosis of liver (principal); K21.00 Gastro-esophageal reflux disease with esophagitis, without bleeding; K75.81 Nonalcoholic steatohepatitis (NASH); I85.10 Secondary esophageal varices without bleeding; R94.5 Abnormal results of liver function studies; M54.9 Dorsalgia, unspecified; G89.29 Other chronic pain; E11.9 Type 2 diabetes mellitus without complications; I11.0 Hypertensive heart disease with heart failure; I50.9 Heart failure, unspecified; G47.33 Obstructive sleep apnea (adult) (pediatric); Z79.899 Other long term (current) drug therapy; Z79.01 Long term (current) use of anticoagulants; Z79.84 Long term (current) use of oral hypoglycemic drugs; Z99.89 Dependence on other enabling machines and devices; Z85.46 Personal history of malignant neoplasm of prostate | CPT/HCPCS: 00731; J2704; J7120 ==

== ENCOUNTER → 2020-12-20 | Outpatient (CLI) | payer MEDICARE, OTHER | LOC: LAB 07:54 | DX: E78.2 Mixed hyperlipidemia (principal) ==

== ENCOUNTER 2021-02-02 09:59 | Emergency (ER) | payer MEDICARE, OTHER ==
[~2021-02-02 09:59] MED LIST changes: +JANUVIA 100MG100 MG PO; -JANUVIA50 MG PO; +VITAMIN E100 UNI1 PO; -VITAMIN E100 UNI2 PO
[2021-02-02] MEDS ORDERED: LANTUS PEN100 U/ML SQ (10:53)
[2021-02-02] MEDS ORDERED: GABAPENTIN TAB600 MG PO (10:54)
[2021-02-02] MEDS ORDERED: PANTOPRAZOLE SO40 MG PO (10:55)
[2021-02-02 14:02] VITALS: BP 132/81
== END 2021-02-02 13:57 | disposition home or self-care (01) ==
LOC: ED 09:59
DX: S92.351A Displaced fracture of fifth metatarsal bone, right foot, initial encounter for closed fracture (principal); M25.561 Pain in right knee; G45.9 Transient cerebral ischemic attack, unspecified; E11.9 Type 2 diabetes mellitus without complications; K21.9 Gastro-esophageal reflux disease without esophagitis; I10 Essential (primary) hypertension; Z96.653 Presence of artificial knee joint, bilateral; Z98.890 Other specified postprocedural states; Z88.6 Allergy status to analgesic agent; Z79.84 Long term (current) use of oral hypoglycemic drugs; Z79.899 Other long term (current) drug therapy; Z79.01 Long term (current) use of anticoagulants; Z79.4 Long term (current) use of insulin; W18.39XA Other fall on same level, initial encounter; Y92.009 Unspecified place in unspecified non-institutional (private) residence as the place of occurrence of the external cause

== ENCOUNTER → 2021-02-21 | Outpatient (CLI) | payer MEDICARE, OTHER ==
[~2021-02-21] MED LIST changes: +GABAPENTIN TAB600 MG PO; +LANTUS PEN100 U/ML SQ; +PANTOPRAZOLE SO40 MG PO
[2021-02-21 12:29] LABS: POTASSIUM 3.7 mmol/L (3.5-5.1)
[2021-02-21 12:30] LABS: CALCIUM 9.9 mg/dL (8.3-10.5)
== END ==
LOC: LAB 11:58
PROVIDERS: Family Medicine
DX: I10 Essential (primary) hypertension (principal)

== ENCOUNTER → 2021-03-24 | Outpatient (CLI) | payer MEDICARE, OTHER ==
[2021-03-24 15:35] LABS: BASO # 0.03 K/mm3 (0.02-0.10); EOS # 0.44 K/mm3 (0.04-0.40); EOS % 4.7 % (0.0-4.0); HEMATOCRIT 51.9 % (42.0-52.0); HEMOGLOBIN 17.3 g/dL (13.5-18.0); LYMPH# 1.99 K/mm3 (1.50-4.00); MEAN CELL VOLUME 89 fl (78-100); MEAN CORPUSCULAR HEMOGLOBIN 30 pg (27-31); MEAN CORPUSCULAR HGB CONC 33 g/dL (33-37); MEAN PLATELET VOLUME 9.7 fl (7.4-10.4); MONO # 0.86 K/mm3 (0.20-0.80); NEU # 5.99 K/mm3 (1.40-6.50); PLATELET COUNT 156 K/mm3 (130-400); RED BLOOD COUNT 5.81 M/mm3 (4.20-5.60); WHITE BLOOD COUNT 9.3 K/mm3 (4.8-10.8)
[2021-03-24 15:58] LABS: ALBUMIN 4.1 g/dL (3.4-4.8)
[2021-03-24 15:59] LABS: POTASSIUM 4.2 mmol/L (3.5-5.1)
[2021-03-24 16:00] LABS: CALCIUM 9.6 mg/dL (8.3-10.5)
[2021-03-24 16:01] LABS: TOTAL PROTEIN 7.3 g/dL (6.2-8.1)
[2021-03-24 16:03] LABS: TOTAL BILIRUBIN 1.1 mg/dL (0.2-1.2)
== END ==
LOC: LAB 15:15
PROVIDERS: Physician Assistant
DX: K75.81 Nonalcoholic steatohepatitis (NASH) (principal); I63.9 Cerebral infarction, unspecified; R74.8 Abnormal levels of other serum enzymes

== ENCOUNTER → 2021-03-27 | Outpatient (CLI) | payer MEDICARE, OTHER | LOC: RAD 07:20 | DX: K74.60 Unspecified cirrhosis of liver (principal); R74.8 Abnormal levels of other serum enzymes; I63.9 Cerebral infarction, unspecified; R60.0 Localized edema; Z90.49 Acquired absence of other specified parts of digestive tract ==

== ENCOUNTER → 2021-04-02 | Outpatient (CLI) | payer MEDICARE, OTHER | LOC: LAB 11:06 | DX: C61 Malignant neoplasm of prostate (principal) ==

== ENCOUNTER → 2021-05-14 | Outpatient (CLI) | payer MEDICARE, OTHER | LOC: LAB 10:20 | DX: J06.9 Acute upper respiratory infection, unspecified (principal); Z20.822 Contact with and (suspected) exposure to COVID-19 ==

== ENCOUNTER 2021-05-31 18:58 | Emergency (ER) | payer MEDICARE, OTHER ==
[~2021-05-31] VITALS: Ht 172.7 cm; Wt 100.9 kg
[2021-05-31 20:12] LABS: BASO # 0.09 K/mm3 (0.02-0.10); EOS # 0.33 K/mm3 (0.04-0.40); EOS % 2.9 % (0.0-4.0); HEMATOCRIT 48.7 % (42.0-52.0); HEMOGLOBIN 16.8 g/dL (13.5-18.0); LYMPH# 2.16 K/mm3 (1.50-4.00); MEAN CELL VOLUME 88 fl (78-100); MEAN CORPUSCULAR HEMOGLOBIN 30 pg (27-31); MEAN CORPUSCULAR HGB CONC 35 g/dL (33-37); MEAN PLATELET VOLUME 10.4 fl (7.4-10.4); MONO # 0.82 K/mm3 (0.20-0.80); NEU # 7.97 K/mm3 (1.40-6.50); PLATELET COUNT 150 K/mm3 (130-400); RED BLOOD COUNT 5.52 M/mm3 (4.20-5.60); RED CELL DISTRIBUTION WIDTH 13.2 % (11.5-14.5); WHITE BLOOD COUNT 11.4 K/mm3 (4.8-10.8)
[2021-05-31 20:18] LABS: POTASSIUM 3.8 mmol/L (3.5-5.1)
[2021-05-31 20:19] LABS: CALCIUM 9.6 mg/dL (8.3-10.5)
[2021-05-31 20:20] LABS: TOTAL PROTEIN 7.3 g/dL (6.2-8.1)
[2021-05-31 20:22] LABS: TOTAL BILIRUBIN 1.2 mg/dL (0.2-1.2)
[2021-05-31 21:07] VITALS: BP 146/75
== END 2021-05-31 22:00 | disposition home or self-care (01) ==
LOC: ED 18:58
PROVIDERS: Family Medicine
DX: E11.65 Type 2 diabetes mellitus with hyperglycemia (principal); F41.9 Anxiety disorder, unspecified; I48.91 Unspecified atrial fibrillation; Z86.73 Personal history of transient ischemic attack (TIA), and cerebral infarction without residual deficits

== ENCOUNTER → 2021-09-08 | Outpatient (CLI) | payer MEDICARE, OTHER | LOC: LAB 10:44 | DX: S72.02 Fracture of epiphysis (separation) (upper) of femur (principal); S42.301D Unspecified fracture of shaft of humerus, right arm, subsequent encounter for fracture with routine healing; E11.9 Type 2 diabetes mellitus without complications; M51.36 Other intervertebral disc degeneration, lumbar region; X58.XXXD Exposure to other specified factors, subsequent encounter ==

== ENCOUNTER → 2021-09-15 | Outpatient (CLI) | payer MEDICARE, OTHER | LOC: RAD 08:41 | DX: M47.812 Spondylosis without myelopathy or radiculopathy, cervical region (principal); M48.02 Spinal stenosis, cervical region; Z98.890 Other specified postprocedural states; W19.XXXS Unspecified fall, sequela | CPT/HCPCS: A9585 ==

== ENCOUNTER → 2021-09-22 | Outpatient (CLI) | payer MEDICARE, OTHER ==
[2021-09-22 16:19] LABS: BASO # 0.07 K/mm3 (0.02-0.10); EOS # 0.32 K/mm3 (0.04-0.40); EOS % 3.5 % (0.0-4.0); HEMATOCRIT 50.2 % (42.0-52.0); HEMOGLOBIN 16.9 g/dL (13.5-18.0); LYMPH# 2.15 K/mm3 (1.50-4.00); MEAN CELL VOLUME 89 fl (78-100); MEAN CORPUSCULAR HEMOGLOBIN 30 pg (27-31); MEAN CORPUSCULAR HGB CONC 34 g/dL (33-37); MEAN PLATELET VOLUME 9.7 fl (7.4-10.4); MONO # 0.99 K/mm3 (0.20-0.80); NEU # 5.55 K/mm3 (1.40-6.50); PLATELET COUNT 180 K/mm3 (130-400); RED BLOOD COUNT 5.67 M/mm3 (4.20-5.60); RED CELL DISTRIBUTION WIDTH 13.5 % (11.5-14.5); WHITE BLOOD COUNT 9.1 K/mm3 (4.8-10.8)
[2021-09-22 16:31] LABS: ALBUMIN 4.1 g/dL (3.4-4.8)
[2021-09-22 16:33] LABS: CALCIUM 9.8 mg/dL (8.3-10.5)
[2021-09-22 16:34] LABS: TOTAL PROTEIN 7.4 g/dL (6.2-8.1)
[2021-09-22 16:36] LABS: TOTAL BILIRUBIN 1.4 mg/dL (0.2-1.2)
[2021-09-22 17:16] LABS: PROTHROMBIN TIME 17.3 SECONDS (9.0-12.0)
== END ==
LOC: LAB 15:58
PROVIDERS: Physician Assistant
DX: K75.81 Nonalcoholic steatohepatitis (NASH) (principal); K74.60 Unspecified cirrhosis of liver

== ENCOUNTER 2021-09-24 08:57 | Outpatient (RCR) | payer MEDICARE, OTHER | END 2021-10-08 | disposition still patient (30) | LOC: OT | DX: I63.311 Cerebral infarction due to thrombosis of right middle cerebral artery (principal); S42.301D Unspecified fracture of shaft of humerus, right arm, subsequent encounter for fracture with routine healing; X58.XXXD Exposure to other specified factors, subsequent encounter ==

== ENCOUNTER 2021-09-24 08:57 | Outpatient (RCR) | payer MEDICARE, OTHER | END 2021-10-08 | disposition home or self-care (01) | LOC: PT | DX: I69.30 Unspecified sequelae of cerebral infarction (principal); W19.XXXS Unspecified fall, sequela ==

== ENCOUNTER → 2021-09-25 | Outpatient (CLI) | payer MEDICARE, OTHER | LOC: RAD 07:51 | DX: K74.60 Unspecified cirrhosis of liver (principal); K75.81 Nonalcoholic steatohepatitis (NASH); R74.8 Abnormal levels of other serum enzymes; I85.10 Secondary esophageal varices without bleeding ==

== ENCOUNTER 2021-11-11 10:34 | Outpatient (RCR) | payer MEDICARE, OTHER | END 2021-12-08 | disposition still patient (30) | LOC: PT | DX: I63.9 Cerebral infarction, unspecified (principal); W19.XXXS Unspecified fall, sequela; R29.898 Other symptoms and signs involving the musculoskeletal system ==

== ENCOUNTER 2021-12-09 09:30 | Outpatient (RCR) | payer MEDICARE, OTHER | END 2022-01-07 | disposition still patient (30) | LOC: PT | DX: I69.351 Hemiplegia and hemiparesis following cerebral infarction affecting right dominant side (principal) ==

== ENCOUNTER → 2022-01-14 | Outpatient (CLI) | payer MEDICARE, OTHER | LOC: LAB 10:28 | DX: E11.9 Type 2 diabetes mellitus without complications (principal); M51.36 Other intervertebral disc degeneration, lumbar region ==

== ENCOUNTER → 2022-02-25 | Outpatient (CLI) | payer MEDICARE, OTHER ==
[2022-02-25 11:19] LABS: ALBUMIN 4.2 g/dL (3.4-4.8); POTASSIUM 3.2 mmol/L (3.5-5.1)
[2022-02-25 11:21] LABS: CALCIUM 9.5 mg/dL (8.3-10.5)
[2022-02-25 11:22] LABS: TOTAL PROTEIN 7.4 g/dL (6.2-8.1)
[2022-02-25 11:24] LABS: TOTAL BILIRUBIN 1.6 mg/dL (0.2-1.2)
== END ==
LOC: LAB 10:54
PROVIDERS: Family Medicine
DX: M51.36 Other intervertebral disc degeneration, lumbar region (principal); E11.9 Type 2 diabetes mellitus without complications

== ENCOUNTER → 2022-03-04 | Outpatient (CLI) | payer MEDICARE, OTHER | LOC: RAD 12:05 | DX: K59.09 Other constipation (principal) ==

== ENCOUNTER 2022-04-03 04:31 | Emergency (ER) | payer MEDICARE, OTHER ==
[~2022-04-03] VITALS: Ht 182.9 cm; Wt 98.6 kg
[2022-04-03 05:08] LABS: HEMATOCRIT 45.5 % (42.0-52.0); HEMOGLOBIN 15.5 g/dL (13.5-18.0)
[2022-04-03 06:26] VITALS: BP 125/66
== END 2022-04-03 06:27 | disposition home or self-care (01) ==
LOC: ED 04:31
PROVIDERS: Nurse Practitioner
DX: J95.830 Postprocedural hemorrhage of a respiratory system organ or structure following a respiratory system procedure (principal); Z79.01 Long term (current) use of anticoagulants; Z95.0 Presence of cardiac pacemaker

== ENCOUNTER → 2022-05-12 | Outpatient (CLI) | payer MEDICARE, OTHER ==
[2022-05-12 13:46] LABS: BASO # 0.03 K/mm3 (0.02-0.10); EOS # 0.17 K/mm3 (0.04-0.40); EOS % 2.2 % (0.0-4.0); HEMATOCRIT 45.2 % (42.0-52.0); HEMOGLOBIN 15.3 g/dL (13.5-18.0); LYMPH# 1.77 K/mm3 (1.50-4.00); MEAN CELL VOLUME 90 fl (78-100); MEAN CORPUSCULAR HEMOGLOBIN 31 pg (27-31); MEAN CORPUSCULAR HGB CONC 34 g/dL (33-37); MONO # 0.58 K/mm3 (0.20-0.80); NEU # 5.05 K/mm3 (1.40-6.50); PLATELET COUNT 160 K/mm3 (130-400); RED CELL DISTRIBUTION WIDTH 13.1 % (11.5-14.5); WHITE BLOOD COUNT 7.6 K/mm3 (4.8-10.8)
[2022-05-12 13:51] LABS: ALBUMIN 4.3 g/dL (3.4-4.8)
[2022-05-12 13:52] LABS: POTASSIUM 3.4 mmol/L (3.5-5.1)
[2022-05-12 13:53] LABS: CALCIUM 9.4 mg/dL (8.3-10.5)
[2022-05-12 13:54] LABS: TOTAL PROTEIN 7.3 g/dL (6.2-8.1)
[2022-05-12 13:56] LABS: TOTAL BILIRUBIN 1.1 mg/dL (0.2-1.2)
[2022-05-12 14:30] LABS: PROTHROMBIN TIME 14.1 SECONDS (9.0-12.0)
== END ==
LOC: LAB 13:19
PROVIDERS: Physician Assistant
DX: K74.60 Unspecified cirrhosis of liver (principal); K75.81 Nonalcoholic steatohepatitis (NASH); R74.8 Abnormal levels of other serum enzymes; I85.10 Secondary esophageal varices without bleeding

== ENCOUNTER → 2022-05-14 | Outpatient (CLI) | payer MEDICARE, OTHER | LOC: RAD 05-13 09:59 | DX: K75.81 Nonalcoholic steatohepatitis (NASH) (principal); K74.60 Unspecified cirrhosis of liver; I85.10 Secondary esophageal varices without bleeding; Z90.49 Acquired absence of other specified parts of digestive tract ==

== ENCOUNTER → 2022-12-10 | Outpatient (CLI) | payer MEDICARE, OTHER | LOC: LAB 09:59 | DX: I48.20 Chronic atrial fibrillation, unspecified (principal); R79.1 Abnormal coagulation profile; K74.60 Unspecified cirrhosis of liver; E11.9 Type 2 diabetes mellitus without complications ==

== ENCOUNTER → 2023-02-24 | Outpatient (CLI) | payer MEDICARE, OTHER ==
[2023-02-24 11:48] LABS: CALCIUM 9.8 mg/dL (8.3-10.5)
[2023-02-24 11:55] LABS: MAGNESIUM 1.57 mg/dL (1.60-2.60)
== END ==
LOC: LAB 11:25
PROVIDERS: Nurse Practitioner Family
DX: R25.2 Cramp and spasm (principal)

== ENCOUNTER → 2023-03-18 | Outpatient (CLI) | payer MEDICARE, OTHER ==
[2023-03-18 10:41] LABS: CALCIUM 9.8 mg/dL (8.3-10.5)
[2023-03-18 10:47] LABS: MAGNESIUM 1.73 mg/dL (1.60-2.60)
== END ==
LOC: LAB 10:01
PROVIDERS: Family Medicine
DX: E83.42 Hypomagnesemia (principal); E11.9 Type 2 diabetes mellitus without complications; M51.36 Other intervertebral disc degeneration, lumbar region

== ENCOUNTER → 2023-04-26 | Outpatient (CLI) | payer MEDICARE, OTHER | LOC: LAB 12:29 | DX: C61 Malignant neoplasm of prostate (principal) ==

== ENCOUNTER → 2023-07-02 | Outpatient (CLI) | payer MEDICARE, OTHER ==
[2023-08-23 11:17] LABS: CREATININE OTHER SOURCE 139.5
[2023-08-23 11:54] LABS: CALCIUM 9.9 mg/dL (8.3-10.5)
== END ==
LOC: LAB 12:07
PROVIDERS: Family Medicine
DX: I10 Essential (primary) hypertension (principal); E11.9 Type 2 diabetes mellitus without complications; M51.36 Other intervertebral disc degeneration, lumbar region

== ENCOUNTER → 2023-10-01 | Outpatient (CLI) | payer MEDICARE, OTHER | LOC: LAB 10:10 | DX: I63.311 Cerebral infarction due to thrombosis of right middle cerebral artery (principal); E11.9 Type 2 diabetes mellitus without complications; E78.2 Mixed hyperlipidemia; M19.012 Primary osteoarthritis, left shoulder; M51.36 Other intervertebral disc degeneration, lumbar region ==

== ENCOUNTER → 2023-11-26 | Outpatient (CLI) | payer MEDICARE, OTHER | LOC: RAD 07:40 | DX: K74.60 Unspecified cirrhosis of liver (principal); D12.6 Benign neoplasm of colon, unspecified; I85.10 Secondary esophageal varices without bleeding ==

== ENCOUNTER → 2023-12-24 | Outpatient (CLI) | payer MEDICARE, OTHER ==
[2023-12-27 12:10] LABS: BASO # 0.03 K/mm3 (0.02-0.10); EOS # 0.09 K/mm3 (0.04-0.40); EOS % 1.3 % (0.0-4.0); HEMOGLOBIN 17.1 g/dL (13.5-18.0); MEAN CELL VOLUME 93 fl (78-100); MEAN CORPUSCULAR HEMOGLOBIN 30 pg (27-31); MEAN CORPUSCULAR HGB CONC 33 g/dL (33-37); MEAN PLATELET VOLUME 10.3 fl (7.4-10.4); NEU # 4.75 K/mm3 (1.40-6.50); PLATELET COUNT 148 K/mm3 (130-400); RED BLOOD COUNT 5.62 M/mm3 (4.20-5.60); RED CELL DISTRIBUTION WIDTH 13.4 % (11.5-14.5)
[2023-12-27 12:11] LABS: ALBUMIN 4.2 g/dL (3.4-4.8); CALCIUM 9.4 mg/dL (8.3-10.5); TOTAL BILIRUBIN 1.3 mg/dL (0.2-1.2); TOTAL PROTEIN 7.2 g/dL (6.2-8.1)
== END ==
LOC: LAB 11:54
PROVIDERS: Physician Assistant
DX: K74.60 Unspecified cirrhosis of liver (principal); R74.8 Abnormal levels of other serum enzymes

== ENCOUNTER → 2024-02-10 | Outpatient (CLI) | payer MEDICARE, OTHER | LOC: LAB 09:43 | DX: E11.9 Type 2 diabetes mellitus without complications (principal) ==

== ENCOUNTER → 2024-02-17 | Outpatient (CLI) | payer MEDICARE, OTHER | LOC: LAB 13:38 | DX: R31.9 Hematuria, unspecified (principal) ==

== ENCOUNTER → 2024-03-06 | Outpatient (CLI) | payer MEDICARE, OTHER | LOC: RAD 13:28 | DX: N20.0 Calculus of kidney (principal) ==

== ENCOUNTER 2024-04-02 17:34 | Emergency (ER) | payer MEDICARE, OTHER ==
[~2024-04-02] VITALS: Ht 172.7 cm; Wt 87.6 kg
[2024-04-02 17:56] LABS: BASO # 0.02 K/mm3 (0.02-0.10); EOS # 0.12 K/mm3 (0.04-0.40); EOS % 1.2 % (0.0-4.0); HEMATOCRIT 49.5 % (42.0-52.0); HEMOGLOBIN 16.3 g/dL (13.5-18.0); LYMPH# 2.53 K/mm3 (1.50-4.00); MEAN CELL VOLUME 92 fl (78-100); MEAN CORPUSCULAR HEMOGLOBIN 30 pg (27-31); MEAN CORPUSCULAR HGB CONC 33 g/dL (33-37); MEAN PLATELET VOLUME 10.3 fl (7.4-10.4); MONO # 0.88 K/mm3 (0.20-0.80); NEU # 6.53 K/mm3 (1.40-6.50); PLATELET COUNT 158 K/mm3 (130-400); RED BLOOD COUNT 5.38 M/mm3 (4.20-5.60); RED CELL DISTRIBUTION WIDTH 14.1 % (11.5-14.5); WHITE BLOOD COUNT 10.1 K/mm3 (4.8-10.8)
[2024-04-02 18:09] LABS: SODIUM 143 mmol/L (136-145)
[2024-04-02 18:10] LABS: CALCIUM 9.6 mg/dL (8.3-10.5)
[2024-04-02 18:11] LABS: GLUCOSE 163 mg/dL (75-110)
[2024-04-02 18:12] LABS: TOTAL PROTEIN 7.4 g/dL (6.2-8.1)
[2024-04-02 18:13] LABS: CARBON DIOXIDE 22 mmol/L (23-31)
[2024-04-02 18:17] LABS: AST-SGOT 126 U/L (5-34)
[2024-04-02 18:18] LABS: ALT/SGPT 159 U/L (0-55)
[2024-04-02 18:33] LABS: TROPONIN-I < 0.030 ng/mL (0.00-0.033)
[2024-04-02 20:37] VITALS: BP 151/92
== END 2024-04-02 20:40 | disposition home or self-care (01) ==
LOC: ED 17:34
PROVIDERS: Physician Assistant
DX: Z95.818 Presence of other cardiac implants and grafts (principal); Z79.01 Long term (current) use of anticoagulants

== ENCOUNTER → 2024-05-10 | Outpatient (CLI) | payer MEDICARE, OTHER ==
[2024-05-10 10:45] LABS: CALCIUM 9.8 mg/dL (8.3-10.5)
== END ==
LOC: LAB 10:12
PROVIDERS: Family Medicine
DX: E11.9 Type 2 diabetes mellitus without complications (principal)

== ENCOUNTER → 2024-05-26 | Outpatient (CLI) | payer MEDICARE, OTHER | LOC: RAD 09:18 | DX: K74.60 Unspecified cirrhosis of liver (principal); I85.10 Secondary esophageal varices without bleeding; K75.81 Nonalcoholic steatohepatitis (NASH); D12.6 Benign neoplasm of colon, unspecified ==